=== PATIENT | female | born 1985 | race Caucasian/White ===

== ENCOUNTER → 2019-09-17 | Outpatient (CLI) | payer MEDICARE ==
--- NOTE | 2019-09-17 11:27 | Diagnostic Imaging Report ---
INDICATION: Bilateral milky nipple discharge. Sonographic interrogation of the retroareolar regions was performed bilaterally. No solid or cystic mass is identified. There is minimal ductal dilatation bilaterally, slightly greater on the right compared to the left. No intraductal mass is seen. IMPRESSION: BI-RADS Category 2 Minimal ductal dilatation. No mass or fluid collection is detected. ACR BI-RADS Category 2: Benign findings. Result letter will be mailed to the patient. Note: At least 10% of breast cancer is not imaged by mammography. Dictated by: Dictated on workstation # [id number]
--- NOTE | 2019-09-17 11:58 | Diagnostic Imaging Report ---
PROCEDURE: MR imaging of the brain without contrast. TECHNIQUE: Multiplanar, multisequence MR imaging of the brain was performed without contrast. INDICATION: Headache and dizziness. COMPARISON: Comparison is made to study of 06/26/2012. FINDINGS: Ventricles and sulci are within normal limits for size. [place] and white matter signal intensities are unremarkable. There is no abnormal mass effect or shift of midline structures. There is no restricted diffusion to indicate an infarct. The visualized paranasal sinuses are clear. There is no evidence of hemorrhage. IMPRESSION: Unremarkable MRI of the brain without significant change from previous study. Dictated by: Dictated on workstation # [id number]
--- NOTE | 2019-09-17 15:16 | Diagnostic Imaging Report ---
INDICATION: Bilateral milky nipple discharge. No prior studies are available for comparison. 2-D and 3-D bilateral diagnostic mammography was performed with CAD. Both breasts are heterogeneously dense, limiting the sensitivity of mammography. No mass or malignant-appearing microcalcifications are seen. The axillae are unremarkable. IMPRESSION: BI-RADS 0 No mammographic features suspicious for malignancy are identified. Even so, directed sonographic interrogation of the retroareolar regions bilaterally is recommended and will be performed today. ACR BI-RADS Category 0: Incomplete. (Needs additional imaging evaluation). Result letter will be mailed to the patient. Note: At least 10% of breast cancer is not imaged by mammography. Dictated by: Dictated on workstation # [id number]
== END ==
LOC: RAD 08:36
PROVIDERS: ATTEND Family Medicine
DX: N64.3 Galactorrhea not associated with childbirth (principal); E22.1 Hyperprolactinemia
CPT/HCPCS: 70551; 76642; 77066

== ENCOUNTER → 2023-02-05 | Outpatient (CLI) | payer MEDICARE ==
--- NOTE | 2023-02-05 14:32 | Diagnostic Imaging Report ---
INDICATION: Abdominal pain. PROCEDURE: Ultrasound abdomen complete. TECHNIQUE: Multiple real-time grayscale images were obtained of the abdomen in various projections. Liver is normal in size 17 cm. Portal vein is patent and shows normal direction of flow. No liver mass is detected. Gallbladder is without stones or sludge. No wall thickening or biliary duct dilatation is seen. Pancreas is poorly visualized due to overlying bowel gas. The spleen is normal in size at 10.8 cm. Aorta is nonaneurysmal. IVC is patent. Right kidney is 10.8 cm in size and left kidney is 11.9 cm. No calculi are seen. There is no hydronephrosis. There is no ascites. IMPRESSION: Unremarkable abdominal ultrasound. Dictated by: Dictated on workstation # [id number]
== END ==
LOC: RAD 09:01
PROVIDERS: ATTEND Family Medicine
DX: R10.9 Unspecified abdominal pain (principal)
CPT/HCPCS: 76700